=== PATIENT | male | born 1975 | race Caucasian/White ===

== ENCOUNTER → 2021-11-14 | Outpatient (CLI) | payer OTHER ==
[~2021-11-14] MED LIST: BACTRIM DS TAB1 EACH PO; IBUPROFEN600 MG PO; PROTONIX40 M1 PO
== END ==
LOC: KOH-I 08:40
DX: S62.002K Unspecified fracture of navicular [scaphoid] bone of left wrist, subsequent encounter for fracture with nonunion (principal); W19.XXXD Unspecified fall, subsequent encounter
CPT/HCPCS: 73221